=== PATIENT | female | born 1995 | race Caucasian/White ===

== ENCOUNTER 2017-03-25 12:57 | Emergency (ER) | payer MEDICAID, OTHER ==
[~2017-03-25] VITALS: Ht 165.1 cm; Wt 53.3 kg
[2017-03-25 13:05] VITALS: BP 128/72
--- NOTE | 2017-03-25 13:14 | NUR ---
PT AMBULATED TO BED 6.
--- NOTE | 2017-03-25 13:16 | NUR ---
22F BIB FAMILY C/O RIGHT TEMPORAL/PARIETAL HEADACHE X 1 WEEK; PT STATES NO TRAUMA OR INJURY TO SITE AT THIS TIME; PT STATES NO BLURRY VISION OR VISION CHANGES AT THIS TIME; PT C/O THROBBING PAIN TO RIGHT TEMPORAL/PARIETAL HEAD, RADIATES TO RT EYE AND BACK OF HEAD, 8/10 X 1 WEEK; PT AA&OX4, PERRLA, BL LUNG SOUNDS CLEAR, RR EVEN/UNLABORED, SKIN IS WARM/DRY/INTACT AT THIS TIME; PT STATES NO N/V/D AT THIS TIME; STEADY GAIT; PT RESTING IN BED WITH HOB ELEVATED AND IN LOWEST POSITION; POSITIONED FOR COMFORT; ER MD MADE AWARE OF STATUS. WILL CONTINUE TO MONITOR.
--- NOTE | 2017-03-25 13:18 | NUR ---
ER MD DR. SOLANO EVALUATING PT AT BEDSIDE.
[2017-03-25] MEDS ORDERED: KETOROLAC 60 MG/2 ML VIAL IM ONE (13:25)
[2017-03-25] MEDS ORDERED: HYDROcodone/APAP 5/325 MG 1 TAB TAB PO ONE (13:25)
[2017-03-25 13:55] VITALS: BP 103/69
--- NOTE | 2017-03-25 13:55 | NUR ---
Patient discharged with v/s stable. Written and verbal after care instructions given and explained. Patient alert, oriented and verbalized understanding of instructions. Ambulatory with steady gait. All questions addressed prior to discharge. ID band removed. Patient advised to follow up with PMD. Rx of AUGMENTIN 875MG TAB AND NAPROXEN 500MG given. Patient educated on indication of medication including possible reaction and side effects. Opportunity to ask questions provided and answered.
== END 2017-03-25 13:55 | disposition home or self-care (01) ==
LOC: MED 12:57
DX: K04.7 Periapical abscess without sinus (principal)
CPT/HCPCS: 96372; 99283; J1885

== ENCOUNTER 2017-12-21 20:19 | Emergency (ER) | payer OTHER ==
[~2017-12-21] VITALS: Ht 160 cm; Wt 50.8 kg
[2017-12-21 20:23] VITALS: BP 102/74
[2017-12-21] MEDS ORDERED: KETOROLAC 30 MG/ML VIAL IM ONE (21:00)
[2017-12-21 21:30] VITALS: BP 104/74
[2017-12-21 21:30] LABS: BARBITURATE, URINE NEG. ng/ml (NEG <=200); BENZODIAZEPINE, URINE NEG. ng/mL (NEG <=200); CANNABINOID, URINE POS. ng/mL (NEG <=50); COCAINE, URINE NEG. ng/mL (NEG <=300); OPIATE, URINE NEG. ng/mL (NEG <=2000); PHENCYCLIDINE SCREEN,URINE NEG. ng/mL (NEG <=25)
== END 2017-12-21 21:30 | disposition home or self-care (01) ==
LOC: MED 20:19
DX: R10.9 Unspecified abdominal pain (principal); R06.02 Shortness of breath; R53.1 Weakness
CPT/HCPCS: 71045; 80305; 81002; 81025; 99285; Q0092; J1885

== ENCOUNTER 2018-01-05 18:24 | Emergency (ER) | payer OTHER ==
[~2018-01-05] VITALS: Ht 162.6 cm; Wt 50.8 kg
[2018-01-05 18:35] VITALS: BP 98/63
== END 2018-01-05 20:43 | disposition left against medical advice (07) ==
LOC: MED 18:24
DX: S40.861A Insect bite (nonvenomous) of right upper arm, initial encounter (principal); S40.862A Insect bite (nonvenomous) of left upper arm, initial encounter; Z53.21 Procedure and treatment not carried out due to patient leaving prior to being seen by health care provider; W57.XXXA Bitten or stung by nonvenomous insect and other nonvenomous arthropods, initial encounter; Y93.89 Activity, other specified; Y92.89 Other specified places as the place of occurrence of the external cause; Y99.8 Other external cause status

== ENCOUNTER 2018-11-23 01:16 | Emergency (ER) | payer OTHER ==
[~2018-11-23] VITALS: Ht 162.6 cm; Wt 50.8 kg
[2018-11-23 01:23] VITALS: BP 115/78
--- NOTE | 2018-11-23 01:23 | NUR ---
23 Y/O FEMALE BIB SELF PRESENTS TO ED WITH PROBABLE INSECT BITE TO RIGHT FOREARM X1 DAY. PT STATES STARTED SMALL BUT EDEMA AND PAIN CONTINUES. 6CM AREA RED WITH EDEMA. CMS INTACT BILAT UPPER EXTREMITIES. NO OPEN AREAS OR WEEPING. AFEBRILE WITH VSS. ER MD AWARE. CONTINUE TO MONITOR.
--- NOTE | 2018-11-23 01:23 | NUR ---
TO BED # 06 AMBULATORY
--- NOTE | 2018-11-23 01:32 | NUR ---
Dr. Ovalle examining patient.
[2018-11-23] MEDS ORDERED: ceFAZolin 1,000 MG VIAL ONE (02:04)
[2018-11-23 02:40] VITALS: BP 115/78
--- NOTE | 2018-11-23 02:40 | NUR ---
PT DISCHARGED BY DR ERAZO. RX OF KEFLEX GIVEN. SIDE EFFECTS EXLPAINED. INSTRUCTED TO F/U WITH PCP AND WHEN TO RETURN TO ER. PT VERBALLIZED UNDERSTANDIN OF DC INSTTRUCTIONS. ALL QUESTIONS ANSWERED.
== END 2018-11-23 02:40 | disposition home or self-care (01) ==
LOC: MED 01:16
DX: L03.114 Cellulitis of left upper limb (principal)
CPT/HCPCS: 36415; 87040; 96365; 99283; J0690

== ENCOUNTER 2019-06-23 22:28 | Emergency (ER) | payer OTHER ==
[~2019-06-23] VITALS: Ht 162.6 cm; Wt 44.5 kg
[2019-06-23 22:35] VITALS: BP 105/65
--- NOTE | 2019-06-23 22:46 | NUR ---
PT AMBULATED TO THE RESTROOM AND THEN TO LOBBY
--- NOTE | 2019-06-23 23:05 | NUR ---
PT AMBULATED TO BED
--- NOTE | 2019-06-23 23:12 | NUR ---
BIB SELF C/O RIGHT SIDED FLANK PAIN THAT IS BEGINNING TO RADIATE TO LEFT SIDE. 7/10 SHARP PAIN. DENIES BURNING DURING URINATION. URINATION FREQUENCY/DRIBBLING PRESENT. DENIES ANY VAGINAL DISCHARGE/ODOR. DENIES SOB/CP. RESP EVEN AND UNLABORED. AAOX3. CAP REFILL <3. BOWEL SOUNDS NORMOACTIVE IN ALL QUADRANTS. LUNG SOUNDS CLEAR. PT HAS HX OF KIDNEY INFECTIONS/UTI. NKA
[2019-06-23] MEDS ORDERED: KETOROLAC 30 MG/ML VIAL IM ONE (23:30)
--- NOTE | 2019-06-23 23:33 | NUR ---
PT TAKEN TO CT
[2019-06-24 00:26] LABS: ANION GAP 12.2 (8-16); CARBON DIOXIDE 28.2 mmol/L (21-32); POTASSIUM 3.4 mmol/L (3.5-5.1)
[2019-06-24 00:27] LABS: CREATININE 0.7 mg/dL (0.6-1.3)
[2019-06-24 00:37] LABS: APPEARANCE,URINE SL CLOUDY (CLEAR); BILIRUBIN,URINE NEGATIVE (NEGATIVE); BLOOD, URINE NEGATIVE (NEGATIVE); COLOR,URINE YELLOW (YELLOW); LEUKOCYTE ESTERASE ,URINE NEGATIVE (NEGATIVE); NITRITE, URINE NEGATIVE (NEGATIVE); UGLUCOSE NEGATIVE (NEGATIVE)
[2019-06-24 00:50] LABS: RBC,URINE 0-5 /HPF (0-5)
--- NOTE | 2019-06-24 01:35 | NUR ---
REPORT RECEIVED FROM OLEKSANDR AYERS. TRANSFER OF CARE AT THIS TIME.
[2019-06-24 01:44] VITALS: BP 125/66
--- NOTE | 2019-06-24 01:44 | NUR ---
Patient discharged with v/s stable. Written and verbal after care instructions given and explained. Patient alert, oriented and verbalized understanding of instructions. Ambulatory with steady gait. All questions addressed prior to discharge. ID band removed. Patient advised to follow up with PMD. Rx of Naprosyn and hydrocortisone given. Patient educated on indication of medication including possible reaction and side effects. Opportunity to ask questions provided and answered.
== END 2019-06-24 01:44 | disposition home or self-care (01) ==
LOC: MED 22:28
DX: R10.9 Unspecified abdominal pain (principal); R21 Rash and other nonspecific skin eruption
CPT/HCPCS: 36415; 80048; 81001; 81002; 81025; 87086; 99284; J1885

== ENCOUNTER 2022-10-27 01:54 | Emergency (ER) | payer OTHER ==
--- NOTE | 2022-10-27 02:35 | NUR ---
PT CALLED FOR TRIAGE. NO ANSWER
--- NOTE | 2022-10-27 02:40 | NUR ---
PT CALLED FOR TRIAGE. NO ANSWER. ATTEMPTED TO CALL PT OUTSIDE ALSO. NO ANSWER
--- NOTE | 2022-10-27 02:42 | NUR ---
PT CALLED SEVERAL TIMES FOR TRIAGE. NO ANSWER. PT LEFT PRIOR TO TRIAGE.
[2022-10-27] MEDS ORDERED: ONDANSETRON 4 MG ODT ONE (21:44)
[2022-10-28] MEDS ORDERED: NAPR-54 PO (04:02)
== END 2022-10-27 02:42 | disposition left against medical advice (07) ==
LOC: MED 01:54
DX: R07.9 Chest pain, unspecified (principal); Z53.21 Procedure and treatment not carried out due to patient leaving prior to being seen by health care provider
CPT/HCPCS: Q0162

== ENCOUNTER 2022-10-28 00:55 | Emergency (ER) | payer OTHER ==
[~2022-10-28] VITALS: Ht 162.6 cm; Wt 59.0 kg
--- NOTE | 2022-10-28 01:00 | NUR ---
PLACED PT. ON BED 9. A/OX4, NOT IN DISTRESS. ATTACHED TO MONITOR.
[2022-10-28 01:01] VITALS: BP 131/72
--- NOTE | 2022-10-28 02:03 | NUR ---
Urine collected and sent to lab
--- NOTE | 2022-10-28 02:04 | NUR ---
Note rubenale in EDM - 10/28/22 at 0207 by JAKE Patient does not wish to proceed with medical care recommended by ERMD. Patient given information related to possible complications, up to and including , which could occur as a result of leaving hospital at this time. Patient verbalizes understanding of risks involved leaving against medical advice. Patient has signed AMA form.
[2022-10-28 02:07] LABS: APPEARANCE,URINE CLEAR (CLEAR); BILIRUBIN,URINE NEGATIVE (NEGATIVE); BLOOD, URINE NEGATIVE (NEGATIVE); COLOR,URINE YELLOW (YELLOW); LEUKOCYTE ESTERASE ,URINE NEGATIVE (NEGATIVE); NITRITE, URINE NEGATIVE (NEGATIVE); PH,URINE 6.5 (5.0-9.0); UGLUCOSE NEGATIVE (NEGATIVE)
[2022-10-28] MEDS ORDERED: HYDROcodone/APAP 5/325 MG 1 TAB TAB PO ONE (02:55)
[2022-10-28] MEDS ORDERED: KETOROLAC 30 MG/ML VIAL IM ONE (02:55)
--- NOTE | 2022-10-28 03:00 | NUR ---
PT. REFUSED FOR TORADOL INJECTION. PT. STATED "I DON'T WANT ANY SHOT FOR PAIN MEDICATION". HEALTH EDUCATION PROVIDED REGARDING THE MEDICATOIN. PT. VERVALIZED UNDERSTANDING. DR. GEORGE INFORMED.
[2022-10-28 03:54] LABS: BARBITURATE, URINE NEGATIVE ng/ml (NEG <=200); BENZODIAZEPINE, URINE NEGATIVE ng/mL (NEG <=200); CANNABINOID, URINE POSITIVE ng/mL (NEG <=50); COCAINE, URINE NEGATIVE ng/mL (NEG <=300); OPIATE, URINE NEGATIVE ng/mL (NEG <=2000); PHENCYCLIDINE SCREEN,URINE NEGATIVE ng/mL (NEG <=25)
[2022-10-28] MEDS ORDERED: diazePAM 5 MG TAB PO ONE (04:00)
[2022-10-28] MEDS ORDERED: NAPR-54 PO (04:02)
[2022-10-28 04:15] VITALS: BP 106/60
--- NOTE | 2022-10-28 04:15 | NUR ---
Note rubenone in EDM - 10/28/22 at 0418 by [id number] Patient discharged with v/s stable. Written and verbal after care instructions given and explained. Patient alert, oriented and verbalized understanding of instructions. Ambulatory with steady gait. All questions addressed prior to discharge. ID band removed. Patient advised to follow up with PMD. Rx given to patient. Patient educated on indication of medication including possible reaction and side effects. Opportunity to ask questions provided and answered.
== END 2022-10-28 04:15 | disposition home or self-care (01) ==
LOC: MED 00:55
DX: R07.89 Other chest pain (principal); R05.9 Cough, unspecified; Z79.1 Long term (current) use of non-steroidal anti-inflammatories (NSAID)
CPT/HCPCS: 71045; 80305; 81003; 81025; 99284; Q0092; J1885

== ENCOUNTER 2023-07-14 14:16 | Emergency (ER) | payer OTHER ==
[~2023-07-14] VITALS: Ht 162.6 cm; Wt 54.4 kg
[~2023-07-14 14:16] MED LIST: NAPR-54 PO
[2023-07-14 14:20] VITALS: BP 122/79; PULSE 109; RESP 18; TEMP 97.6; O2SAT 100
[2023-07-14] MEDS ORDERED: ACET-10509 PO (14:39)
[2023-07-14] MEDS ORDERED: BACI-418 TP (14:39)
== END 2023-07-14 14:58 | disposition home or self-care (01) ==
LOC: MED 14:16
DX: S61.011A Laceration without foreign body of right thumb without damage to nail, initial encounter (principal); Z79.899 Other long term (current) drug therapy; W26.0XXA Contact with knife, initial encounter; Y93.89 Activity, other specified; Y92.89 Other specified places as the place of occurrence of the external cause; Y99.8 Other external cause status
CPT/HCPCS: 90471; 90715; 99283